=== PATIENT | female | born 1945 | race Asian ===

== ENCOUNTER 2017-03-06 03:45 | Emergency (ER) | payer MEDICARE ==
[~2017-03-06] VITALS: Ht 160 cm; Wt 54.5 kg
[2017-03-06 03:50] VITALS: Ht 160 cm; Wt 54.5 kg
[2017-03-06] MEDS ORDERED: ONDANSETRON 4 MG INJ IV STA (04:03)
[2017-03-06] MEDS ORDERED: SOD CHLORIDE 0.9% 500 ML IV STA (04:03)
[2017-03-06 04:24] LABS: ADD SCAN DIFF NO
[2017-03-06 04:35] LABS: BASOPHILS % 0.4 % (0.0-2.0); EOSINOPHILS # 0.2 10^3/ul (0.0-0.5); EOSINOPHILS % 2.3 % (0.0-7.0); HEMATOCRIT 40.8 % (37.0-47.0); HEMOGLOBIN 13.3 g/dl (12.0-16.0); LYMPHOCYTES % 27.8 % (15.0-51.0); MEAN CORPUSCULAR HEMOGLOBIN 30.6 pg (29.0-33.0); MEAN CORPUSCULAR HGB CONC 32.6 g/dl (32.0-37.0); MEAN PLATELET VOLUME 9.8 fl (7.4-10.4); MONOCYTE # 0.4 10^3/ul (0.3-0.9); MONOCYTES % 5.4 % (0.0-11.0); NEUTROPHIL # 4.4 10^3/ul (1.6-7.5); NEUTROPHILS % 62.7 % (39.0-77.0); PLATELET COUNT 214 10^3/UL (140-415); RED BLOOD COUNT 4.34 10^6/ul (4.20-5.40)
[2017-03-06 04:37] LABS: INR 0.85; PROTIME 11.6 Sec (12.2-14.2); PT RATIO 0.9
[2017-03-06 04:38] LABS: ALBUMIN 4.4 g/dl (3.3-4.9); CHLORIDE 102 mmol/L (97-110); PARTIAL THROMBOPLASTIN TIME 26.9 Sec (25.0-35.0)
[2017-03-06 04:39] LABS: POTASSIUM 3.6 mmol/L (3.5-5.1); SODIUM 139 mmol/L (135-144)
[2017-03-06 04:41] LABS: ALBUMIN/GLOBULIN RATIO 1.41; ANION GAP 15 (8-16); BILIRUBIN,INDIRECT 0.6 mg/dl (0-1.1); BILIRUBIN,TOTAL 0.6 mg/dl (0.2-1.3); CARBON DIOXIDE 26 mmol/L (21-31); CREATININE 0.63 mg/dl (0.44-1.00); TOTAL PROTEIN 7.5 g/dl (6.1-8.1)
[2017-03-06 04:42] LABS: ALANINE AMINOTRANSFERASE 23 IU/L (13-69); ALKALINE PHOSPHATASE 41 IU/L (42-121); ASPARTATE AMINO TRANSFERASE 28 IU/L (15-46); BLOOD UREA NITROGEN 21 mg/dl (7-20); CALCIUM 8.9 mg/dl (8.4-10.2); GLUCOSE 193 mg/dl (70-220)
[2017-03-06 04:49] LABS: B-TYPE NATRIURETIC PEPTIDE 113 PG/ML (0-125)
[2017-03-06 04:53] LABS: TROPONIN-I < 0.012 ng/ml (0.00-0.12)
== END 2017-03-06 05:23 | disposition left against medical advice (07) ==
LOC: E/R 03:45
DX: Z53.21 Procedure and treatment not carried out due to patient leaving prior to being seen by health care provider (principal)
CPT/HCPCS: 80053; 83880; 84484; 85025; 85610; 85730; 93005; J2405; J7040

== ENCOUNTER 2019-06-30 07:34 | Observation (INO) | payer MEDICARE ==
[2019-06-29 14:55] VITALS: BMI 22.3
[2019-06-30] VITALS (22 sets, daily range): BP systolic 100–148; BP diastolic 56–74; PULSE 70–94; RESP 11–28; Ht 154.9 cm; Wt 55.6 kg
[~2019-06-30] VITALS: Ht 154.9 cm; Wt 55.6 kg
[~2019-06-30 07:34] MED LIST: CEFAZOLIN 2 GM/50 ML (PMX) 50 ML IVPB ONE; LACTATED RINGER'S 1,000 ML IV SCH; PREG50CA PO
--- NOTE | 2019-06-30 09:06 | HPN ---
Date/Time of Note Date/Time of Note DATE: 06/30/19 TIME: 09:06 Interval H&P Admission Note Pt. seen H&P reviewed: No system changes GERMÁN WOODRUFF MD Jun 30, 2019 09:06
[2019-06-30] MEDS ORDERED: ACETAMINOPHEN 325 MG TAB PO PRN (09:30)
[2019-06-30] MEDS ORDERED: MAGNESIUM HYDROXIDE 30ML CUP PO PRN (09:30)
[2019-06-30] MEDS ORDERED: ONDANSETRON 4 MG INJ IV PRN ×2 (09:30→11:00)
[2019-06-30] MEDS ORDERED: NALOXONE (0.4 MG/ML) INJ IV PRN (09:30)
[2019-06-30] MEDS ORDERED: DIPHENHYDRAMINE 25 MG CAP PO PRN (09:30)
[2019-06-30] MEDS ORDERED: HYDROCODONE/APAP (5/325) TAB PO PRN (09:30)
[2019-06-30] MEDS ORDERED: HYDROmorphONE 0.5 MG/0.5 ML SYG IV PRN (09:30)
[2019-06-30] MEDS ORDERED: DIPHENHYDRAMINE 50 MG INJ IV PRN ×2 (09:30→11:00)
[2019-06-30] MEDS ORDERED: CEPASTAT LOZENGE MT PRN (09:30)
[2019-06-30] MEDS: CEFAZOLIN 1 GM/50 ML (PMX) 50 ML IVPB SCH ×2 (09:30→16:51)
[2019-06-30] MEDS ORDERED: BISACODYL 10 MG SUPP PR PRN (09:30)
[2019-06-30] MEDS ORDERED: GELATIN SIZE 100 SPONGE ONE (09:31)
[2019-06-30] MEDS ORDERED: THROMBIN 5000 UNIT (RECOTHROM) VIAL ONE ×2 (09:31→11:52)
[2019-06-30] MEDS ORDERED: POLYMYXIN/BACITRACIN 1L IRRIG ONE (09:32)
[2019-06-30] MEDS ORDERED: CA CHLORIDE 10% 10 ML SYRINGE ONE (09:32)
[2019-06-30] MEDS ORDERED: HEPARIN 1000 UNITS/ML 10 ML INJ ONE (09:32)
[2019-06-30] MEDS ORDERED: BUPIVACAINE 0.5%/EPI (SDV) 30 ML INJ ONE (09:32)
[2019-06-30] MEDS ORDERED: SODIUM CL BACTERIOSTATIC 30 ML INJ ONE (09:32)
--- NOTE | 2019-06-30 09:32 | PREAC ---
Date/Time of Note Date/Time of Note DATE: 06/30/19 TIME: 09:32 Anesthesia Eval and Record Evaluation Time Pre-Procedure Interview DATE: 06/30/19 TIME: 09:32 Age 73 Sex female NPO: 8 hrs Preoperative diagnosis Degeneration of intervertebral disc, L3-4 Planned procedure L3-4 extraforaminal microdiscectomy Past Medical History Past Medical History: Includes Musculoskeletal: Osteoarthritis Surgery & Anesthesia Issues No known issue Meds Anticoagulation: No Beta Fiona within 24 hr: No Reason Beta Fiona not given: Pt. not on B-Fiona Reported Medications Pregabalin* (Lyrica*) 50 Mg Capsule, 50 MG PO BID, CAP 06/30/19 Current Medications Lactated Ringer's 1,000 ml @ 0 mls/hr Q0M IV Last administered on 06/30/19at 08:39; Admin Dose 0 MLS/HR; Start 06/30/19 at 07:00 Potassium Chloride/Dextrose/ Sod Cl 1,000 ml @ 100 mls/hr Q10H IV ; Start 06/30/19 at 09:06 Acetaminophen/ Hydrocodone Bitart ([place] (5/325)) 1 tab Q4H PRN PO .PAIN 1-5; Start 06/30/19 at 09:30 Acetaminophen/ Hydrocodone Bitart ([place] (5/325)) 2 tab Q4H PRN PO .PAIN 6-10; Start 06/30/19 at 09:30 Hydromorphone HCl (Dilaudid) 0.2 mg Q1H PRN IV .BREAKTHROUGH PAIN; Start at 09:30 Cefazolin Sodium 50 ml @ 100 mls/hr Q8H IVPB ; Start 06/30/19 at 09:30; Stop 07/01/19 at 01:59 Ondansetron HCl (Zofran Inj) 4 mg Q6H PRN IV NAUSEA/VOMITING; Start 06/30/19 at 09:30 Bisacodyl (Dulcolax Supp) 10 mg DAILY PRN [place] .CONSTIPATION; Start 06/30/19 at 09:30 Docusate Sodium (Colace) 100 mg BID PO ; Start 06/30/19 at 21:00 Magnesium Hydroxide (Milk Of Mag) 30 ml HS PRN PO .CONSTIPATION/DYSPEPSIA; Start 06/30/19 at 09:30 Acetaminophen (Tylenol Tab) 650 mg Q4H PRN PO CASTELLANOS OR TEMP GREATER THAN 101.3F; Start 06/30/19 at 09:30 Phenol (Cepastat Lozenge) 1 lozenge PRN PRN [place] .SORE THROAT; Start 06/30/19 at 09:30 Diphenhydramine HCl (Benadryl) 25 mg Q6H PRN PO .ITCHING; Start 06/30/19 at 09:30 Diphenhydramine HCl (Benadryl) 25 mg Q6H PRN IV .ITCHING; Start 06/30/19 at 09:30 Naloxone HCl (Narcan) 0.2 mg Q2M PRN IV .RR 8 BREATHS/MIN OR LESS; Start 06/30/19 at 09:30 Meds reviewed: Yes Allergies Coded Allergies: Sulfa (Sulfonamide Antibiotics) (Verified Allergy, Unknown, itching, 06/29/19) erythromycin base (Verified Allergy, Unknown, itching, 06/29/19) Allergies Reviewed: Yes Labs/Studies Labs Reviewed: Reviewed by anesthesiologist test: N/A Pre-procedure Exam Last vitals Vital Signs Date Temp Pulse Resp B/P (MAP) Pulse Ox O2 O2 Flow FiO2 Time Delivery Rate 06/30/19 97.8 91 16 148/74 98 Room Air 08:34 (98) Airway: Adequate mouth opening Mallampati: Mallampati I Teeth: Normal Lung: Normal Heart: Normal ASA Physical Status ASA physical status: 2 Emergency: None Planned Anesthetic General/MAC: ETT Planned Pain Management Parenteral pain med Pre-operative Attestations Prior to commencing anesthesia and surgery, the patient was re-evaluated, there was verification of: *The patient's identity *The results of appropriate recent lab work and preoperative vital signs *The above evaluation not changing prior to induction *Anesthetic plan, risk benefits, alternative and complications discussed with patient/family; questions answered; patient/family understands, accepts and wishes to proceed. REE WHALEY MD Jun 30, 2019 09:32
[2019-06-30] MEDS ORDERED: SEVOFLURANE 15 MIN ONE (09:45)
[2019-06-30] MEDS ORDERED: SUCCINYLCHOLINE CHLORIDE 100 MG/5 ML SYG IV ONE (09:47)
[2019-06-30] MEDS ORDERED: NEOSTIGMINE 3 MG/3 ML SYRINGE ONE (09:47)
[2019-06-30] MEDS ORDERED: GLYCOPYRROLATE 0.4 MG INJ ONE ×2 (09:47→10:48)
[2019-06-30] MEDS ORDERED: LIDOCAINE 2% (SDV) 5 ML INJ ONE (09:47)
[2019-06-30] MEDS ORDERED: PROPOFOL 20 ML ONE (09:47)
[2019-06-30] MEDS ORDERED: MEPERIDINE 100 MG INJ ONE (09:47)
[2019-06-30] MEDS ORDERED: ROCURONIUM 50 MG INJ ONE (09:47)
[2019-06-30] MEDS ORDERED: METOCLOPRAMIDE 10 MG INJ ONE (10:46)
[2019-06-30] MEDS ORDERED: ONDANSETRON 4 MG INJ ONE (10:46)
[2019-06-30] MEDS ORDERED: MEPERIDINE 25 MG INJ IV PRN (11:00)
[2019-06-30] MEDS ORDERED: HYDROmorphONE 1 MG/5 ML IV SYRINGE IV PRN ×3 (11:00)
[2019-06-30] MEDS ORDERED: FENTAnyl 50 MCG/ML VIAL IV PRN ×2 (11:00)
[2019-06-30] MEDS ORDERED: LABETALOL HCL 20MG INJ IV PRN (11:00)
[2019-06-30] MEDS ORDERED: EPHEDrine 25 MG/5 ML SYG IV PRN (11:00)
[2019-06-30] MEDS ORDERED: hydrALAzine 20 MG INJ IV PRN (11:00)
[2019-06-30] MEDS ORDERED: METOCLOPRAMIDE 10 MG INJ IV PRN (11:00)
[2019-06-30] MEDS ORDERED: MIDAZOLAM 1 MG/ML 2 ML INJ IV PRN (11:00)
[2019-06-30] MEDS ORDERED: CEFAZOLIN 1 GM INJ ONE (12:16)
--- NOTE | 2019-06-30 12:30 | SIPON ---
Date/Time of Note Date/Time of Note DATE: 06/30/19 TIME: 12:29 Operative Report Preoperative Diagnosis Right L3-4 disc herniation Postoperative Diagnosis Right L3-4 disc herniation Operation/Procedure Performed Right L3-4 discectomy Surgeon see signature line grants assistant Inocencia Maldonado Anesthesia: general Estimated blood loss: 50 - 100 ml's Transfusion Required none Specimen Disc Grafts/Implants none Complications none GERMÁN WOODRUFF MD Jun 30, 2019 12:30
[2019-06-30] MEDS ORDERED: NALOXONE (0.4 MG/ML) INJ ONE (12:44)
[2019-06-30] MEDS: FENTAnyl 50 MCG/ML VIAL IV PRN ×2 (13:06→13:13)
[2019-06-30] MEDS: D5W-0.45 NACL + KCL 20 MEQ 1,000 ML IV SCH ×2 (15:02→18:54)
--- NOTE | 2019-06-30 15:55 | OPR ---
DATE OF OPERATION: 06/30/2019 PREOPERATIVE DIAGNOSES: 1. History of previous L4 to L5 and L5 to S1 decompression and instrumented fusion (2016). 2. Right extraforaminal disk extrusion at L3 to L4. 3. Right lumbar radiculopathy. POSTOPERATIVE DIAGNOSES: 1. History of previous L4 to L5 and L5 to S1 decompression and instrumented fusion (2016). 2. Right extraforaminal disk extrusion at L3 to L4. 3. Right lumbar radiculopathy. PROCEDURES PERFORMED: 1. Right L3 to L4 hemilaminotomy, partial medial facetectomy, foraminotomy. 2. Right L3 to L4 extraforaminal lumbar microdiskectomy. 3. Use of operative microscope. 4. Use of C-arm fluoroscopy with interpretation without radiologist present. 5. Intraoperative neuromonitoring. PRIMARY SURGEON: Delonte Chaney MD FUR JOINER: Inocencia Maldonado PA-C NEED FOR CHARTER AND TOUR BUS DRIVER: During this spinal surgical procedure, my showroom sales assistant was used to retract and protect the spinal nerves and dural sac. My showroom sales assistant also employed the suction catheters to ev acuate blood from the surgical field to improve visualization of the neural structures. The assistan t was medically necessary to facilitate the completion of the surgery in a safe and expeditious [facility] r. [facility] regulations, as well as hospital bylaws, preclude the use of non-licensed [place] [facility] personnel, such as operating room technicians, to perform these functions. FINDINGS: Neuromonitoring at the start of the case revealed right L3 and right L4 amplitude down 30% . At the end of the case, nerve signals returned to normal. The patient had a far lateral extrusion at the L3 to L4 level. Significant scar tissue was encountered from the previous surgeries altering the field. ESTIMATED BLOOD LOSS: 60 mL. DRAINS: None. SPECIMENS: L3 to L4 disk. COMPLICATIONS OF PROCEDURES: None. ANESTHESIOLOGIST: Td Pierce MD TYPE OF ANESTHESIA: General. INDICATIONS FOR PROCEDURE: This is a 73-year-old female who had previously undergone a decompression and instrumented fusion by a different surgeon in 2016 at the L4 to L5 and L5 to S1 levels. She dev eloped an extruded fragment in the far lateral region at the L3 to L4 level on the right side. This was causing pain on her right leg. She failed nonoperative measures and therefore, it is recommended that she undergo the above procedure. Preoperatively, we discussed risks, benefits, alternatives. She understood and wished to proceed. DESCRIPTION OF PROCEDURE IN DETAIL: The patient was identified in the preoperative holding area, giv en Ancef antibiotic, taken to the operating room, where she was successfully placed under general ane sthesia. Neuromonitoring leads were placed. Sequential compressive devices were applied. Samuels cat heter was introduced and removed at the end of the case. Remote intraoperative neuromonitoring was p erformed by Dr. Lema surgery from 9:05 until 12:20 to include SSEP, MEP and EMG performed by MR Presta. The patient was placed on the operating table in prone position over a Silverio frame. All bony prominences were well padded. The back was then prepped and draped in a sterile fashion. Using the C-arm fluoroscope, I identified the incision site. I anesthetized skin with Marcaine and e pinephrine. Incision was then made over the L3 to L4 level. Incision was taken down to dorsal fasci a which was incised with Bovie cautery. Due to the patient's previous surgery, there is alteration o f the field. There was bone graft over the lamina as well as scar tissue. This alteration of the fi eld added at least 30 minutes to the procedure. I placed a Kerrison under what was felt to be the L3 lamina and took AP and lateral images to confirm this. Next, microscope was brought in and I perfor med a right-sided hemilaminotomy, partial medial facetectomy and foraminotomy. Ligamentum flavum adh ered to the dura and I was able to remove this to expose the dura and the traversing nerve root. I a lso identified the exiting nerve root above. Once I visualized everything clearly, I was able to hav e my showroom sales assistant retracted neural elements medially. I identified the annulus, made an annulotomy, aft er which I performed an extraforaminal lumbar microdiskectomy on the right at L3 to L4. I then took a Douglas elevator to open up the L3 foramen by taking down some of the osteophytes and the calcified ligament in the foraminal region. Once this was completed, all the nerve signals returned to normal . The patient had quite a bit of epidural vascularization and took some time to achieve hemostasis. Once this was done, I irrigated the wound. I injected PPP and thrombin over the dura for hemostatic purposes. Microscope was taken off the field. I closed the wound in layers, closing deep fascia wi th #1 Vicryl stitch to close subcutaneous tissue with a 2-0 Vicryl stitch. A 4-0 Monocryl closure wa s then performed. Dermabond was then applied. The patient was then awakened from anesthesia and jose en to the recovery room in stable condition. Lap, sponge and instrument counts were correct x2. The re were no apparent complications during the procedure. The patient will be admitted to the [facility] for routine postoperative care to include pain co ntrol, neurovascular checks, antibiotics and physical therapy. Dictated By: DELONTE CHANEY MD BB/NTS Conf#: [id number] DID#: [id number] CC: MADHU BAEZ MD;*End*
--- NOTE | 2019-06-30 16:30 | PAC ---
Date/Time of Note Date/Time of Note DATE: 06/30/19 TIME: 16:30 Post-Anesthesia Notes Post-Anesthesia Note Last documented vital signs Vital Signs Date Temp Pulse Resp B/P (MAP) Pulse Ox O2 O2 Flow FiO2 Time Delivery Rate 06/30/19 78 13 116/65 93 Room Air 16:18 (82) 06/30/19 98.8 15:48 06/30/19 8.0 13:23 Activity: WNL Respiratory function: WNL Cardiovascular function: WNL Mental status: Baseline Pain reasonably controlled: Yes Hydration appropriate: Yes Nausea/Vomiting absent: Yes REE WHALEY MD Jun 30, 2019 16:30
--- NOTE | 2019-06-30 18:23 | CONS ---
Assessment/Plan Assessment/Plan Problems: (1) S/P laminectomy Status: Acute Comment: s/p Right L3 to L4 hemilaminotomy, partial medial facetectomy, foraminotomy with right L3 to L4 extraforaminal lumbar microdiskectomy. clinically doing well in the immediate post op. Consultation Date/Type/Reason Admit Date/Time Jun 30, 2019 at 07:34 Date/Time of Note DATE: 06/30/19 TIME: 18:16 Hx of Present Illness 73 year old woman with previous history of L4 to L5 and L5 to S1 decompression and instrumented fusion in 2016. Now with right extraforaminal disk extrusion at L3 to L4 and right lumbar radiculopathy. [facility] for L3 to L4 laminectomy with microdiskectomy. With the exception of back pain negative ROS after 9 system review Constitutional: no complaints Eyes: no complaints ENT: no complaints Respiratory: no complaints Cardiovascular: no complaints Gastrointestinal: no complaints Musculoskeletal: no complaints Skin: no complaints Neurologic: no complaints Endocrine: no complaints Lymphatic: no complaints Psychological: no complaints Immunologic: no complaints Past Medical History Medical History: no pertinent history Home Meds Reported Medications Pregabalin* (Lyrica*) 50 Mg Capsule, 50 MG PO BID, CAP 06/30/19 Medications Current Medications Lactated Ringer's 1,000 ml @ 0 mls/hr Q0M IV Last administered on 06/30/19at 08:39; Admin Dose 0 MLS/HR; Start 06/30/19 at 07:00 Potassium Chloride/Dextrose/ Sod Cl 1,000 ml @ 100 mls/hr Q10H IV Last administered on 06/30/19at 15:02; Admin Dose 100 MLS/HR; Start 06/30/19 at 09:06 Acetaminophen/ Hydrocodone Bitart ([place] (5/325)) 1 tab Q4H PRN PO .PAIN 1-5; Start 06/30/19 at 09:30 Acetaminophen/ Hydrocodone Bitart ([place] (5/325)) 2 tab Q4H PRN PO .PAIN 6-10; Start 06/30/19 at 09:30 Hydromorphone HCl (Dilaudid) 0.2 mg Q1H PRN IV .BREAKTHROUGH PAIN; Start 06/30/19 at 09:30 Cefazolin Sodium 50 ml @ 100 mls/hr Q8H IVPB Last administered on 06/30/19at 16:51; Admin Dose 100 MLS/HR; Start 06/30/19 at 09:30; Stop 07/01/19 at 01:59 Ondansetron HCl (Zofran Inj) 4 mg Q6H PRN IV NAUSEA/VOMITING; Start 06/30/19 at 09:30 Bisacodyl (Dulcolax Supp) 10 mg DAILY PRN [place] .CONSTIPATION; Start 06/30/19 at 09:30 Docusate Sodium (Colace) 100 mg BID PO ; Start 06/30/19 at 21:00 Magnesium Hydroxide (Milk Of Mag) 30 ml HS PRN PO .CONSTIPATION/DYSPEPSIA; Start 06/30/19 at 09:30 Acetaminophen (Tylenol Tab) 650 mg Q4H PRN PO CASTELLANOS OR TEMP GREATER THAN 101.3F; Start 06/30/19 at 09:30 Phenol (Cepastat Lozenge) 1 lozenge PRN PRN [place] .SORE THROAT; Start 06/30/19 at 09:30 Diphenhydramine HCl (Benadryl) 25 mg Q6H PRN PO .ITCHING; Start 06/30/19 at 09:30 Diphenhydramine HCl (Benadryl) 25 mg Q6H PRN IV .ITCHING; Start 06/30/19 at 09:30 Naloxone HCl (Narcan) 0.2 mg Q2M PRN IV .RR 8 BREATHS/MIN OR LESS; Start 06/30/19 at 09:30 Allergies: Coded Allergies: Sulfa (Sulfonamide Antibiotics) (Verified Allergy, Unknown, itching, ) erythromycin base (Verified Allergy, Unknown, itching, 06/29/19) Past Surgical History Past Surgical Hx: other (History of previous L4 to L5 and L5 to S1 decompression and instrumented fusion (2016).) Social History Alcohol Use: none Smoking Status: Never smoker Drug Use: none Exam/Review of Systems Exam Vitals Vital Signs Date Temp Pulse Resp B/P (MAP) Pulse Ox O2 O2 Flow FiO2 Time Delivery Rate 06/30/19 82 12 106/62 94 Room Air 17:18 (77) 06/30/19 98.8 15:48 06/30/19 8.0 13:23 Constitutional: alert, oriented, well developed Psych: nl mood/affect Eyes: nl conjunctiva, EOMI, PERRL Neck: supple Respiratory: clear to auscultation Cardiovascular: regular rate and rhythm Gastrointestinal: soft Musculoskeletal: nl extremities to inspection Extremities: normal pulses Neurological: other (moving all extremities) Medications Medication Current Medications Lactated Ringer's 1,000 ml @ 0 mls/hr Q0M IV Last administered on 06/30/19at 08:39; Admin Dose 0 MLS/HR; Start 06/30/19 at 07:00 Potassium Chloride/Dextrose/ Sod Cl 1,000 ml @ 100 mls/hr Q10H IV Last administered on 06/30/19at 15:02; Admin Dose 100 MLS/HR; Start 06/30/19 at 09:06 Acetaminophen/ Hydrocodone Bitart ([place] (5/325)) 1 tab Q4H PRN PO .PAIN 1-5; Start 06/30/19 at 09:30 Acetaminophen/ Hydrocodone Bitart ([place] (5/325)) 2 tab Q4H PRN PO .PAIN 6-10; Start 06/30/19 at 09:30 Hydromorphone HCl (Dilaudid) 0.2 mg Q1H PRN IV .BREAKTHROUGH PAIN; Start 06/30/19 at 09:30 Cefazolin Sodium 50 ml @ 100 mls/hr Q8H IVPB Last administered on 06/30/19at 16:51; Admin Dose 100 MLS/HR; Start 06/30/19 at 09:30; Stop 07/01/19 at 01:59 Ondansetron HCl (Zofran Inj) 4 mg Q6H PRN IV NAUSEA/VOMITING; Start 06/30/19 at 09:30 Bisacodyl (Dulcolax Supp) 10 mg DAILY PRN [place] .CONSTIPATION; Start 06/30/19 at 09:30 Docusate Sodium (Colace) 100 mg BID PO ; Start 06/30/19 at 21:00 Magnesium Hydroxide (Milk Of Mag) 30 ml HS PRN PO .CONSTIPATION/DYSPEPSIA; Start 06/30/19 at 09:30 Acetaminophen (Tylenol Tab) 650 mg Q4H PRN PO CASTELLANOS OR TEMP GREATER THAN 101.3F; Start 06/30/19 at 09:30 Phenol (Cepastat Lozenge) 1 lozenge PRN PRN [place] .SORE THROAT; Start 06/30/19 at 09:30 Diphenhydramine HCl (Benadryl) 25 mg Q6H PRN PO .ITCHING; Start 06/30/19 at 09:30 Diphenhydramine HCl (Benadryl) 25 mg Q6H PRN IV .ITCHING; Start 06/30/19 at 09:30 Naloxone HCl (Narcan) 0.2 mg Q2M PRN IV .RR 8 BREATHS/MIN OR LESS; Start 06/30/19 at 09:30 DHIRAJ TERAN MD Jun 30, 2019 18:23
[2019-06-30] MEDS ORDERED: PREGABALIN 25 MG CAP PO SCH (21:00)
[2019-06-30] MEDS ORDERED: PREGABALIN 50 MG CAP PO SCH (21:19)
[2019-06-30] MEDS: DOCUSATE SODIUM 100 MG CAP PO SCH (21:32)
[2019-07-01] VITALS: BP 132/60; PULSE 98; RESP 18
[2019-07-01] MEDS: CEFAZOLIN 1 GM/50 ML (PMX) 50 ML IVPB SCH ×2 (01:30→01:40)
[2019-07-01] MEDS: D5W-0.45 NACL + KCL 20 MEQ 1,000 ML IV SCH (03:20)
[2019-07-01] MEDS: HYDROCODONE/APAP (5/325) TAB PO PRN ×2 (06:09→10:39)
[2019-07-01 07:37] VITALS: BP 106/57; PULSE 98; RESP 19
[2019-07-01] MEDS: DOCUSATE SODIUM 100 MG CAP PO SCH ×2 (09:00→09:02)
--- NOTE | 2019-07-01 14:32 | DS ---
Date/Time of Note Date/Time of Note DATE: 07/01/19 TIME: 14:31 Discharge Summary Admission/Discharge Info Admit Date/Time Jun 30, 2019 at 07:34 Discharge Date/Time July 01 Discharge Diagnosis Lumbar disc herniation Patient Condition: Good Procedures Lumbar discectomy Hospital Course Patient was admitted to the [facility] after undergoing a lumbar discectomy. Her postoperative course was uncomplicated. By postoperative day 1 she was deemed stable for discharge with follow-up arranged with the undersigned. Home Meds Reported Medications Pregabalin* (Lyrica*) 50 Mg Capsule, 50 MG PO BID, CAP 06/30/19 Primary Care Provider Care Physician No Primary Pending Labs Laboratory Tests Test 07/01/19 04:47 07/01/19 07:17 White Blood Count 9.6 10^3/ul (4.8-10.8) Red Blood Count 3.82 10^6/ul (4.20-5.40) Hemoglobin 11.5 g/dl (12.0-16.0) Hematocrit 35.6 % (37.0-47.0) Mean Corpuscular Volume 93.2 fl (82.0-101.0) Mean Corpuscular Hemoglobin 30.1 pg (29.0-33.0) Mean Corpuscular 32.3 g/dl (32.0-37.0) Hemoglobin Concent Red Cell Distribution Width 12.2 % (11.5-14.5) Platelet Count 156 10^3/UL (140-415) Mean Platelet Volume 9.4 fl (7.4-10.4) Immature Granulocytes % 0.300 % (0.001-0.429) Neutrophils % 81.9 % (39.0-77.0) Lymphocytes % 8.6 % (15.0-51.0) Monocytes % 8.2 % (0.0-11.0) Eosinophils % 0.7 % (0.0-7.0) Basophils % 0.3 % (0.0-2.0) Nucleated Red Blood Cells % 0.0 /100WBC (0.0-0.0) Immature Granulocytes # 0.030 10^3/ul (0.0-0.031) Neutrophils # 7.8 10^3/ul (1.6-7.5) Lymphocytes # 0.8 10^3/ul (0.8-2.9) Monocytes # 0.8 10^3/ul (0.3-0.9) Eosinophils # 0.1 10^3/ul (0.0-0.5) Basophils # 0.0 10^3/ul (0.0-0.1) Nucleated Red Blood Cells # 0.0 10^3/ul (0.0-0.0) Sodium Level 140 mmol/L (135-144) Potassium Level 3.7 mmol/L (3.5-5.1) Chloride Level 103 mmol/L (97-110) Carbon Dioxide Level 32 mmol/L (21-31) Anion Gap 5 (5-13) Blood Urea Nitrogen 9 mg/dl (7-20) Creatinine 0.70 mg/dl (0.44-1.00) Est Glomerular Filtrat mL/min (>60) Rate mL/min Glucose Level 118 mg/dl (70-220) Calcium Level 8.4 mg/dl (8.4-10.2) Magnesium Level 1.8 mg/dl (1.7-2.5) Lab Scanned Report [facility] [id number] GERMÁN WOODRUFF MD Jul 01, 2019 14:31
== END 2019-07-01 15:20 | disposition home or self-care (01) ==
LOC: REC 07:34 → INTOOBSV 07:34 → MS1 18:45
PROVIDERS: ADMIT Specialist; ATTEND Specialist
DX: M51.16 Intervertebral disc disorders with radiculopathy, lumbar region (principal); Z98.1 Arthrodesis status
CPT/HCPCS: 63030; 72100; 80048; 83735; 85025; 86999; 88304; 97110; 97116; 97161; 97530; G0378; J0690; J1200; J1644; J2175; J2310; J2405; J2710; J2765; J3010; J3480; 99217